=== PATIENT | male | born 1990 | race Caucasian/White ===

== ENCOUNTER 2020-05-19 12:23 | Emergency (ER) | payer OTHER ==
[~2020-05-19] VITALS: Ht 180.3 cm; Wt 102.1 kg
[2020-05-19] MEDS ORDERED: NAPROSYN500 MG PO (14:19)
[2020-05-19] MEDS ORDERED: APAP W/CODEINE1 TA2 PO (14:19)
[2020-05-19 14:34] VITALS: BP 130/72
--- NOTE | 2020-05-20 15:07 | EKG ---
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
== END 2020-05-19 14:35 | disposition home or self-care (01) ==
LOC: M.ERS 12:23
DX: M94.0 Chondrocostal junction syndrome [Tietze] (principal)